=== PATIENT | male | born 1980 | race Caucasian/White ===

== ENCOUNTER 2019-03-15 19:31 | Emergency (ER) | payer OTHER ==
[~2019-03-15] VITALS: Ht 180.3 cm; Wt 90.9 kg
[2019-03-15 19:41] VITALS: BP 116/81
[2019-03-15] MEDS ORDERED: ketorolac trometh inj. 60 MG/2 ML VIAL IM ONE (19:50)
[2019-03-15] MEDS ORDERED: KETO10TA2 PO (19:53)
[2019-03-15] MEDS ORDERED: CYCL-1 PO (19:53)
== END 2019-03-15 20:09 | disposition home or self-care (01) ==
LOC: EEVIPCON 19:31 → ER 19:31
DX: M54.42 Lumbago with sciatica, left side (principal); Z88.5 Allergy status to narcotic agent; Z79.899 Other long term (current) drug therapy
CPT/HCPCS: 96372; 99283; J1885

== ENCOUNTER 2019-03-21 11:52 | Outpatient (CLI) | payer OTHER ==
[~2019-03-21 11:52] MED LIST: CYCL-1 PO; KETO10TA2 PO
[2019-03-21 13:20] LABS: BASOPHILS % (AUTO) 0.5 % (0-1); EOSINOPHILS # (AUTO) 0.1 X10'3 (0-0.9); EOSINOPHILS % (AUTO) 1.6 % (0-6); HEMATOCRIT 47.3 % (42.0-52.0); HEMOGLOBIN 16.2 g/dl (14.0-17.9); LYMPHOCYTES # (AUTO) 1.9 X10'3 (1.1-4.8); LYMPHOCYTES % (AUTO) 31.5 % (21-51); MEAN CORPUSCULAR HEMOGLOBIN 31.1 PG (27.0-31.0); MEAN CORPUSCULAR HGB CONC 34.2 g/dL (33.0-36.5); MEAN PLATELET VOLUME 9.6 FL (7.4-10.4); MONOCYTES # (AUTO) 0.4 X10'3 (0-0.9); MONOCYTES % (AUTO) 7.3 % (2-12); NEUTROPHILS # (AUTO) 3.6 X10'3 (1.8-7.7); NEUTROPHILS % (AUTO) 59.1 % (42-75); PLATELET COUNT 237 X10'3 (140-440); RED CELL DISTRIBUTION WIDTH 12.7 % (11.5-14.5)
[2019-03-25 05:20] LABS: TESTOSTERONE, FREE, DIRECT 9.8 pg/mL (8.7-25.1)
== END 2019-03-21 23:59 | disposition home or self-care (01) ==
LOC: RAD 11:52
PROVIDERS: ATTEND Family Medicine
DX: M50.323 Other cervical disc degeneration at C6-C7 level (principal); M47.26 Other spondylosis with radiculopathy, lumbar region; M48.02 Spinal stenosis, cervical region; M47.818 Spondylosis without myelopathy or radiculopathy, sacral and sacrococcygeal region; M25.78 Osteophyte, vertebrae; R53.83 Other fatigue; R53.1 Weakness
CPT/HCPCS: 36415; 72141; 72148; 82607; 82746; 83540; 83550; 84402; 84403; 84439; 84443; 85025

== ENCOUNTER 2019-04-24 17:32 | Emergency (ER) | payer OTHER ==
[~2019-04-24] VITALS: Ht 180.3 cm; Wt 90.9 kg
[2019-04-24] MEDS ORDERED: ciprofloxacin 0.3% 2.5ml ophthalmic solution LEFTEYE ONE (18:00)
[2019-04-24 18:15] VITALS: BP 132/79
[2019-04-24] MEDS ORDERED: ciprofloxacin 0.3% 2.5ml ophthalmic solution LEFTEYE SCH (20:00)
== END 2019-04-24 18:16 | disposition home or self-care (01) ==
LOC: ER 17:33
DX: S05.02XA Injury of conjunctiva and corneal abrasion without foreign body, left eye, initial encounter (principal); Z88.5 Allergy status to narcotic agent; Z79.899 Other long term (current) drug therapy; W22.8XXA Striking against or struck by other objects, initial encounter; Y93.89 Activity, other specified; Y92.89 Other specified places as the place of occurrence of the external cause; Y99.8 Other external cause status
CPT/HCPCS: 99283

== ENCOUNTER 2019-08-28 17:44 | Emergency (ER) | payer OTHER ==
[~2019-08-28] VITALS: Ht 180.3 cm; Wt 90.9 kg
[2019-08-28] MEDS ORDERED: ondansetron 4mg rapidly disintigrating tab PO ONE (18:10)
[2019-08-28] MEDS ORDERED: ONDA8TAB6 PO (18:11)
[2019-08-28 18:29] VITALS: BP 134/81
== END 2019-08-28 18:40 | disposition home or self-care (01) ==
LOC: ER 17:45
DX: R50.9 Fever, unspecified (principal); R51 Headache; Z88.5 Allergy status to narcotic agent; Z79.899 Other long term (current) drug therapy
CPT/HCPCS: 99283

== ENCOUNTER 2019-08-29 11:11 | Emergency (ER) | payer OTHER ==
[~2019-08-29] VITALS: Ht 180.3 cm; Wt 90.9 kg
[~2019-08-29 11:11] MED LIST changes: +ONDA8TAB6 PO
[2019-08-29] MEDS ORDERED: dexamethasone sod phosphate 10mg/ml inj IM STA (11:16)
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
[2019-08-29 11:55] LABS: MONOTEST NEGATIVE (Neg)
[2019-08-29 12:41] VITALS: BP 136/79
== END 2019-08-29 12:42 | disposition home or self-care (01) ==
LOC: ER 11:11
DX: J02.9 Acute pharyngitis, unspecified (principal); R11.2 Nausea with vomiting, unspecified; R50.9 Fever, unspecified; Z88.5 Allergy status to narcotic agent; Z79.899 Other long term (current) drug therapy
CPT/HCPCS: 36415; 86308; 96372; 99283; J1100

== ENCOUNTER 2019-09-05 00:19 | Emergency (ER) | payer OTHER ==
[~2019-09-05] VITALS: Ht 180.3 cm; Wt 90.0 kg
[2019-09-05 00:24] VITALS: BP 140/100
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
[2019-09-05] MEDS ORDERED: LIDOcaine 1% W/epiNEPHrine 1:200,000 10ml vial IJ ONE (00:45)
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
--- NOTE | 2019-09-05 01:16 | NUR ---
IRRIGATED LACERATION APPROX 1/4 INCH FROM THE EYEBROW WITH 200 ML NS .
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
== END 2019-09-05 01:45 | disposition home or self-care (01) ==
LOC: ER 00:20
DX: S01.111A Laceration without foreign body of right eyelid and periocular area, initial encounter (principal); Z88.5 Allergy status to narcotic agent; Z79.899 Other long term (current) drug therapy; Y04.8XXA Assault by other bodily force, initial encounter; Y93.89 Activity, other specified; Y92.89 Other specified places as the place of occurrence of the external cause; Y99.8 Other external cause status
CPT/HCPCS: 12011; 99283

== ENCOUNTER 2019-10-19 14:05 | Outpatient (CLI) | payer OTHER | END 2019-10-19 23:59 | disposition home or self-care (01) | LOC: LAB 14:05 | PROVIDERS: ATTEND Family Medicine | DX: E29.1 Testicular hypofunction (principal) | CPT/HCPCS: 36415; 84402; 84403 ==

== ENCOUNTER 2020-01-03 10:27 | Outpatient (CLI) | payer BC | END 2020-01-03 23:59 | disposition home or self-care (01) | LOC: RAD 10:27 | PROVIDERS: ATTEND Family Medicine | DX: M25.462 Effusion, left knee (principal) | CPT/HCPCS: 73721 ==